=== PATIENT | female | born 1945 | race Caucasian/White ===

== ENCOUNTER 2017-03-06 06:03 | Inpatient (IN) | payer OTHER ==
[2017-02-05 13:06] VITALS: BMI 37.0
--- NOTE | 2017-02-05 13:41 | PAT Medication Instructions ---
Service Date Feb 05, 2017. Current Home Medication List Aspirin (Aspir-81), 81 MG PO QPM Furosemide (Furosemide), 1 TAB PEG QAM Levothyroxine Sodium (Synthroid), 1 TAB PO DAILYBB Loratadine (Claritin), 10 MG PO HS Montelukast Sodium (Singulair), 10 MG PO HS Multivitamin (Multivitamin), 2 TAB PO QAM Ranitidine (Zantac), 150 MG PO BID Medication Instructions For Your Scheduled Surgery - Hold the following medications the morning of surgery: Multivitamin (Multivitamin), 2 TAB PO QAM Furosemide (Furosemide), 1 TAB PEG QAM - Take the following medications the morning of surgery with a sip of water: Ranitidine (Zantac), 150 MG PO BID Levothyroxine Sodium (Synthroid), 1 TAB PO DAILY - Take the following medications as scheduled the night before surgery: Ranitidine (Zantac), 150 MG PO BID Loratadine (Claritin), 10 MG PO HS Montelukast Sodium (Singulair), 10 MG PO HS Aspirin (Aspir-81), 81 MG PO QPM *OTHERWISE NOTHING TO EAT OR DRINK AFTER MIDNIGHT* If you have any questions please call us at [phone] or [phone] or [phone]
[2017-02-05 13:57] LABS: BASO % 1.2 %; BASO ABS # 0.11 K/uL (0-0.2); COMPLETE YES; EOS % 2.5 %; HEMATOCRIT 40.1 % (37-47); IG% 0.2 %; LYMPH % 22.2 %; LYMPH ABS # 1.97 K/uL (1.2-3.4); MEAN CELL VOLUME 88.1 fL (80-100); MEAN CORPUSCULAR HEMOGLOBIN 29.7 pg (25-34); MEAN CORPUSCULAR HGB CONC 33.7 g/dl (32-36); MEAN PLATELET VOLUME 8.4 fL (7.4-10.4); MONO % 7.1 %; NEUT % 66.8 %; PLATELET COUNT 292 K/uL (130-400); RED BLOOD COUNT 4.55 M/uL (4.2-5.4); WHITE BLOOD COUNT 8.88 K/uL (4.8-10.8)
[2017-02-05 14:04] LABS: BUN/CREATININE RATIO 16.5 (10-20); CALCIUM 10.1 mg/dl (8.5-10.1); CREATININE 1.1 mg/dl (0.60-1.20); POTASSIUM 4.4 mmol/L (3.5-5.1)
[2017-02-05 14:08] LABS: PARTIAL THROMBOPLASTIN RATIO 1.1; PROTHROMBIN TIME (PATIENT) 10.3 SECONDS (9.0-12.0)
[2017-02-05 14:44] LABS: URINE APPEARANCE CLEAR (CLEAR); URINE BILIRUBIN NEG (NEG); URINE COLOR YELLOW; URINE NITRITE NEG (NEG); URINE PH 6.5 (4.5-7.5); URINE SPECIFIC GRAVITY 1.013 (1.000-1.030); UROBILINOGEN NEG (NEG)
[2017-02-05 14:50] LABS: MANUAL MICROSCOPIC REQUIRED? NO; REVIEW REQ? NO
--- NOTE | 2017-03-05 19:02 | HISTORY & PHYSICAL EXAMINATION ---
DATE OF ADMISSION: 03/06/2017 HISTORY AND PHYSICAL ADMISSION NOTE CHIEF COMPLAINT: Primary osteoarthritis of the right hip. HISTORY OF PRESENT ILLNESS: Deborah is a pleasant 71-year-old female who has been having a several year history of right hip and groin pain. She has been getting progressively worse over the past year. It is now bothering her when she walks and when she sleeps at night. It limits her daily activities. X-rays and clinical examination were diagnostic for primary osteoarthritis of the right hip. After failing extensive conservative treatment, she elected to proceed with a right total hip arthroplasty. PAST MEDICAL HISTORY: Significant for hypothyroidism, depression, hyperlipidemia, GERD, vertigo and hypertension. PAST SURGICAL HISTORY: Posterior lumbar fusion, cholecystectomy, D&C, appendectomy, carpal tunnel release, and knee arthroscopy. ALLERGIES: None. MEDICATIONS: Include ranitidine 150 mg in the morning and evening, Singulair 10 mg daily, loratadine 10 mg daily, carvedilol 12.5 mg 1-1/2 pills in the morning and 1 pill in the evening, Synthroid 100 mcg daily, Lasix 20 mg daily, aspirin 81 mg daily, vitamin E 400 units daily, magnesium 250 mg 1-1/2 tabs daily, losartan 100 mg daily. FAMILY HISTORY: Noncontributory. SOCIAL HISTORY: She is , denies any history of tobacco use REVIEW OF SYSTEMS: She complains of right hip pain. All other pertinent review of systems is negative. PHYSICAL EXAMINATION: GENERAL: She is awake, alert and orient x3. She is in no apparent distress. She is very pleasant. HEENT: Pupils are equal, round and reactive to light. Extraocular motion intact. Oral mucosa is pink and moist. HEART: Regular rate per radial pulse. LUNGS: Nela symmetrically bilaterally with no audible breath sounds. ABDOMEN: Soft, nontender, nondistended. MUSCULOSKELETAL: On physical examination of her hip, she ambulates independently. She has some mild tenderness to palpation over the greater trochanteric bursa. While lying supine, she has a reproducible groin pain with forced internal and external rotation of her right hip. Her leg lengths were equal. She can plantarflex and dorsiflex the right ankle appropriately. IMAGING: X-rays of the right hip do show advanced osteoarthritis with joint space narrowing, subchondral cysts and osteophyte formation. IMPRESSION: Advanced osteoarthritis of the right hip. PLAN: Will proceed with a Biomet Taperloc right total hip arthroplasty. Postoperatively, she will be started on aspirin 325 mg twice a day for DVT prophylaxis and kept in the hospital for postoperative medical management. TERESA
[2017-03-06] VITALS (9 sets, daily range): BP systolic 133–170; BP diastolic 72–85; PULSE 55–72; TEMP 36.5–36.8; O2SAT 95–100; Ht 152.4 cm; Wt 86.0 kg
[~2017-03-06] VITALS: Ht 152.4 cm; Wt 86.0 kg
[~2017-03-06 06:03] MED LIST: ACETAMINOPHEN 500 MG TAB PO SCH; ASPI-232 PO; CEFAZOLIN 2000 MG/60 ML D5W 60 ML IV SCH; CLR10 PO; FAMOTIDINE 20 MG TAB PO SCH; GABAPENTIN 300 MG CAP PO SCH; LACTATED RINGER'S 1000ML 1,000 ML IV SCH; LACTATED RINGER'S 1000ML 500 ML IV ONE; LACTATED RINGER'S 1000ML IV SCH; LSX20 PO; MONT1TAB3 PO; MULT-506 PO; ROPIVACAINE 5MG/ML 30 ML 150 MG, BUPIVACAINE/EPINEPHR 0.5% MPF 30 ML, KETOROLAC TROMETH... INFIL SCH; SYN100 PO; ZNTT/150 PO
[2017-03-06] MEDS ORDERED: BUPIVACAINE 0.5 % 5 MG/1 ML PF 10ML VIAL ONE (06:18)
[2017-03-06] MEDS: TRANEXAMIC ACID INJ 1,000 MG in SODIUM CHLORIDE 0.9% 100ML 100 ML IV SCH ×2 (06:30→06:42)
[2017-03-06] MEDS ORDERED: CARV12.52 PO (06:34)
[2017-03-06] MEDS ORDERED: HYZ/10015 PO (06:34)
[2017-03-06] MEDS ORDERED: MIDAZOLAM HCL 1 MG/ML 2ML VIAL ONE ×2 (06:39→08:58)
[2017-03-06] MEDS ORDERED: LIDOCAINE HCL 2% 2 ML VIAL (20MG/ML) ONE (06:39)
[2017-03-06] MEDS ORDERED: PROPOFOL IV EMULSION 10 MG/ML 20 ML VIAL IV ONE (06:39)
--- NOTE | 2017-03-06 06:52 | History & Physical Bridge Note ---
H&P Re-Evaluation Bridge Note: I have examined the patient, reviewed the History & Physical and in the interval since the performance of the History & Physical I have noted the following changes of clinical significance: No changes noted
[2017-03-06] MEDS ORDERED: ATROPINE SULFATE 0.1 MG/ML 5ML SYR IV PRN (07:00)
[2017-03-06] MEDS ORDERED: EpHEDrine SULFATE INJ 50 MG/ML AMP IV PRN (07:00)
[2017-03-06] MEDS ORDERED: ONDANSETRON INJ 2 MG/ML 2 ML VIAL IV PRN ×2 (07:00→10:45)
[2017-03-06] MEDS ORDERED: FENTANYL CITRATE INJ 50 MCG/1 ML 2 ML VIAL IV PRN (07:00)
[2017-03-06] MEDS ORDERED: FENTANYL CITRATE INJ 50 MCG/1 ML 2 ML VIAL ONE ×2 (07:04→08:58)
[2017-03-06] MEDS ORDERED: ORTHO JOINT ANESTHETIC ONE (07:54)
[2017-03-06] MEDS ORDERED: BACITRACIN 50000 UNIT VIAL ONE (07:54)
[2017-03-06] MEDS ORDERED: EpHEDrine SULFATE 50MG/5ML SYR ONE (09:21)
[2017-03-06] MEDS ORDERED: EpHEDrine SULFATE INJ 50 MG/ML AMP ONE (10:16)
--- NOTE | 2017-03-06 10:34 | [facility] Post Operative Brief Note ---
Immediate Operative Summary Operative Date Mar 06, 2017. Pre-Operative Diagnosis Advanced Osteoarthritis of the Right Hip Post-Operative Diagnosis Advanced Osteoarthritis of the Right Hip Procedure(s) Performed Right Anterior Total Hip Arthroplasty--Uncemented Surgeon Dr. Mehta Home Appliance Installer Surgeon(s) SHERIF Miller Estimated Blood Loss 350cc Findings as above Specimens A. Right Femoral Head Complication(s) None Disposition Recovery Room / PACU
[2017-03-06] MEDS ORDERED: METOCLOPRAMIDE HCL INJ 5 MG/ML 2 ML VIAL IV PRN (10:45)
[2017-03-06] MEDS ORDERED: BISACODYL 10 MG SUPP PR PRN (10:45)
[2017-03-06] MEDS ORDERED: MAGNESIUM HYDROXIDE SUSP 30 ML UDC PO PRN (10:45)
[2017-03-06] MEDS ORDERED: SOD PHOSPHATE/SOD BIPHOSPHATE ENEMA 132 ML BTL PR PRN (10:45)
[2017-03-06] MEDS ORDERED: SILVER SULFADIAZINE 1% CR 50 GM JAR EXT PRN (10:45)
[2017-03-06] MEDS ORDERED: MoRPHine SULFATE 2 MG/ML CARP IV PRN (10:45)
--- NOTE | 2017-03-06 11:15 | OPERATIVE REPORT ---
DATE OF OPERATION: 03/06/2017 PREOPERATIVE DIAGNOSIS: Primary osteoarthritis of the right hip. POSTOPERATIVE DIAGNOSIS: Same. PROCEDURE: Right total hip arthroplasty. SURGEON: Dr. Liang Mehta. ANIMAL CARETAKER: Rakesh Gomez PA-C, whose assistance was necessary for helping with retraction and closure. ANESTHESIA: Spinal. COMPLICATIONS: None. CONDITION: Stable to PACU. IMPLANTS USED: I used a Biomet Taperloc total hip arthroplasty system with a size 6 high offset stem with a 46-mm cup, a 28-mm E-poly neutral liner, a single 30-mm screw and a 28 head with a -6 neck. It was a very short and varus femur. INDICATIONS: Deborah is a 71-year-old female who presented to my office with complaints of chronic bilateral hip pain, right worse than left. X-rays and clinical examination were diagnostic for primary osteoarthritis of the hip. After failing conservative treatment, she elected to undergo a right total hip arthroplasty. DESCRIPTION OF PROCEDURE: On 03/06/2017, she arrived at [facility] for the above procedure. She was seen in the preoperative holding area and the operative extremity was identified and signed. She was given a preoperative antibiotic and a spinal anesthetic. She was taken back to the operating room, laid on the table in supine position and given basic sedation. The right leg was then brought out to the Purist leg positioner. The right hip was then prepped and draped in sterile fashion. Time-out was done and the patient and operative extremity was properly identified. An anterior approach was used. Dissection was taken down to the tensor and fascia was released. The tensor muscle was retracted laterally and the rectus was retracted medially. The circumflex vessels were ligated. The capsule was exposed. The capsule was then incised for later capsular repair. The femoral neck was then resected and the head was removed. The acetabulum was then exposed. Time was spent doing a complete circumferential labral release. Sequential reaming of the acetabulum up to a size 45 reamer was done. I was able to get good circumferential bleeding bone with this. A size 46-mm acetabulum was then impacted into place under fluoroscopy to ensure appropriate alignment. The wound was then irrigated and a single 30-mm screw was placed followed by a 28-mm E-poly neutral liner. The proximal femur was then exposed. Sequential broaching up to a size 6 broach was done. I had trouble assuming the 6 broach low enough. A high offset neck was used and a -6 head was trialled. The hip was reduced. Overall, the hip looked to be a little bit long. Time was spent ensuring that the broach stem was completely seated. I even tried decreasing it to a size 5 stem; however, that felt very stable. I decided to go with a size 6 stem high offset and impacted it into the canal in place. A 28-mm -6 neck was then used. The hip was then reduced and final fluoroscopic images showed anatomic alignment with slight lengthening of the right hip. The surrounding soft tissues were injected with 100 mL of an orthopedic pain control cocktail. The wound was then irrigated with 3 liters of normal saline solution with bacitracin. The capsule was then closed with #1 Vicryl suture. A drain was placed. Fascia was closed with #1 PDS suture. Skin was closed with 2-0 Vicryl, 3-0 V-Loc suture and melonie. She was then placed in a soft compressive dressing and taken to the postanesthesia care unit in stable condition. She tolerated the procedure well. I attest to the content of the Intraoperative Record and any orders documented therein. Any exception s are noted below.
--- NOTE | 2017-03-06 11:33 | DIAGNOSTIC IMAGING REPORT ---
R PELVIS/UNILATERAL HIP 1 VIEW CLINICAL HISTORY: Postoperative evaluation. COMPARISON: Right hip radiographs January 26, 2017. FINDINGS: Alignment of the total right hip arthroplasty is anatomic. There is no fracture or unexpected radiopaque foreign body. Skin melonie and a drain are in place. IMPRESSION: Expected findings following total right hip arthroplasty. Electronically signed by: Devang Junior M.D. 03/06/2017 11:32 AM Dictated Date/Time: 03/06/2017 11:31 AM
[2017-03-06] MEDS: SODIUM CHLORIDE 0.9% 1000ML 1,000 ML IV SCH ×2 (12:26→21:48)
--- NOTE | 2017-03-06 12:30 | DIAGNOSTIC IMAGING REPORT ---
INTRAOPERATIVE RADIOGRAPHS CLINICAL HISTORY: Right hip arthroplasty. Fluoroscopy time: 52 seconds. FINDINGS: 2 spot fluoroscopic views of the right hip are presented. Correlation with radiographs dated 01/26/2017. A right hip arthroplasty is in near-anatomic alignment. A single cortical lag screw transfixes the acetabular cup. There is no evidence of fracture on these fluoroscopic images. IMPRESSION: Intraoperative images from a right hip arthroplasty procedure as above. Electronically signed by: Moy Montgomery M.D. 03/06/2017 12:28 PM Dictated Date/Time: 03/06/2017 12:27 PM
--- NOTE | 2017-03-06 13:05 | Anesthesiology Progress Note ---
Anesthesia Post Op Note Date & Time Mar 06, 2017 at 13:04 Vital Signs Pain Intensity: 0.0 Vital Signs Past 12 Hours Date Time Temp Pulse Resp B/P (MAP) Pulse Ox O2 Delivery O2 Flow Rate FiO2 03/06/17 12:45 61 17 146/78 (100) 100 Nasal Cannula 2.0 03/06/17 12:15 58 18 160/78 (105) 99 Nasal Cannula 2.0 03/06/17 11:45 100 Nasal Cannula 2.0 03/06/17 11:45 36.6 55 18 133/79 (97) 100 Nasal Cannula 2.0 03/06/17 11:45 Nasal Cannula 03/06/17 11:32 54 16 03/06/17 11:32 54 16 100 03/06/17 11:31 143/68 03/06/17 11:27 56 15 03/06/17 11:27 55 15 99 03/06/17 11:26 135/70 03/06/17 11:24 55 16 03/06/17 11:24 56 16 99 03/06/17 11:21 140/85 03/06/17 11:19 56 16 03/06/17 11:19 56 16 100 03/06/17 11:18 56 15 03/06/17 11:18 56 15 100 03/06/17 11:16 128/90 03/06/17 11:13 61 19 100 03/06/17 11:13 62 19 03/06/17 11:12 133/88 03/06/17 11:08 60 19 03/06/17 11:08 60 19 100 03/06/17 11:07 137/75 03/06/17 11:03 64 21 97 03/06/17 11:03 65 21 03/06/17 11:01 106/82 03/06/17 10:59 126/69 03/06/17 10:58 36.8 68 16 126/69 98 Oxymask 10 03/06/17 10:58 70 19 98 03/06/17 10:58 67 19 03/06/17 06:41 36.5 63 18 170/85 98 Room Air Notes Mental Status: alert / awake / arousable, participated in evaluation Pt Amnestic to Procedure: Yes Nausea / Vomiting: adequately controlled Pain: adequately controlled Airway Patency, RR, SpO2: stable & adequate BP & HR: stable & adequate Hydration State: stable & adequate Neuraxial Anesthesia: was administered, sensory block is resolving Anesthetic Complications: no major complications apparent
[2017-03-06] MEDS: KETOROLAC TROMETHAMINE 15 MG/ML VIAL IV. SCH ×2 (14:00→19:09)
[2017-03-06] MEDS: ACETAMINOPHEN IV 1,000 MG in EMPTY BAG 0 ML IV SCH ×2 (14:00→21:48)
[2017-03-06] MEDS: CEFAZOLIN IV 2,000 MG in DEXTROSE 5% 50ML 50 ML IV SCH ×2 (16:55→23:36)
[2017-03-06] MEDS ORDERED: TRANEXAMIC ACID INJ 1,000 MG in SODIUM CHLORIDE 0.9% 100ML 100 ML IV ONE (17:00)
[2017-03-06] MEDS: MONTELUKAST SOD 10 MG TAB PO SCH (20:17)
[2017-03-06] MEDS: DOCUSATE SODIUM 100 MG CAP PO SCH (20:17)
[2017-03-06] MEDS: LORATADINE 10 MG TAB PO SCH (20:17)
[2017-03-06] MEDS: RANITIDINE HCL 150 MG TAB PO SCH (20:18)
[2017-03-06] MEDS: SENNA 8.6 MG TAB PO SCH (20:18)
[2017-03-06] MEDS: ASPIRIN 325 MG ECTAB PO SCH (20:19)
[2017-03-06] MEDS: CARVEDILOL 6.25 MG TAB PO SCH (20:19)
[2017-03-07] VITALS (7 sets, daily range): BP systolic 104–174; BP diastolic 58–84; PULSE 57–63; TEMP 36.5–37; O2SAT 98–100
[2017-03-07] MEDS: KETOROLAC TROMETHAMINE 15 MG/ML VIAL IV. SCH ×4 (01:40→19:47)
[2017-03-07] MEDS: ACETAMINOPHEN IV 1,000 MG in EMPTY BAG 0 ML IV SCH (05:33)
[2017-03-07] MEDS: LEVOTHYROXINE 100 MCG TAB PO SCH (05:33)
[2017-03-07 06:19] LABS: BASO % 0.1 %; BASO ABS # 0.01 K/uL (0-0.2); COMPLETE YES; HEMATOCRIT 29.3 % (37-47); IG% 0.3 %; LYMPH % 4.8 %; LYMPH ABS # 0.71 K/uL (1.2-3.4); MEAN CELL VOLUME 88.8 fL (80-100); MEAN CORPUSCULAR HEMOGLOBIN 28.5 pg (25-34); MEAN CORPUSCULAR HGB CONC 32.1 g/dl (32-36); MEAN PLATELET VOLUME 8.2 fL (7.4-10.4); MONO % 7.5 %; NEUT % 87.3 %; PLATELET COUNT 216 K/uL (130-400); WHITE BLOOD COUNT 14.89 K/uL (4.8-10.8)
[2017-03-07 06:48] LABS: BUN/CREATININE RATIO 22.8 (10-20); POTASSIUM 4.4 mmol/L (3.5-5.1)
[2017-03-07] MEDS: SODIUM CHLORIDE 0.9% 1000ML 1,000 ML IV SCH (07:58)
[2017-03-07] MEDS: DOCUSATE SODIUM 100 MG CAP PO SCH ×2 (08:49→20:40)
[2017-03-07] MEDS: LOSARTAN/HCTZ 50-12.5 EA TAB PO SCH (08:49)
[2017-03-07] MEDS: ASPIRIN 325 MG ECTAB PO SCH ×2 (08:49→20:41)
[2017-03-07] MEDS: MULTIVITAMIN TAB PO SCH (08:50)
[2017-03-07] MEDS: CARVEDILOL 6.25 MG TAB PO SCH ×2 (08:50→20:42)
[2017-03-07] MEDS: FUROSEMIDE 20 MG TAB PO SCH (08:50)
[2017-03-07] MEDS: PANTOprazole SOD 40 MG TAB PO SCH (08:50)
[2017-03-07] MEDS: RANITIDINE HCL 150 MG TAB PO SCH ×2 (08:50→20:43)
--- NOTE | 2017-03-07 09:01 | PROGRESS NOTE ---
DATE: 03/07/2017 CHIEF COMPLAINT: Status post right total hip arthroplasty, postop day #1. PROGRESS: Deborah was seen and examined at bedside today. Overall, she is doing very well. She was up and walking around this morning to the bathroom. She says she has a little bit of decreased sensation in her thigh, but she does have feeling. She has no pain and no other complaints. PHYSICAL EXAMINATION: RIGHT HIP: The dressing is clean and dry and the drain is to suction. She has full active extension of her quad, full dorsiflexion and plantarflexion of her ankle. She can feel me touching her quad, but she says this sensation is a little bit different. LABORATORY DATA: She has an H&H today of 9.4 and 29.3. Her glucose is 111. Her vital signs are all stable on room air. She is voiding on her own. IMPRESSION: Status post right total hip arthroplasty, postop day #1. PLAN: At this point, she is doing fairly well. She will be up and ambulating more today with physical therapy. We will keep her pain controlled. Tomorrow, the nursing staff can change her dressing and pull the drain. I will look at discharging her to home with the [facility].
[2017-03-07] MEDS: ACETAMINOPHEN 500 MG TAB PO SCH ×2 (14:21→20:45)
[2017-03-07] MEDS: OXYCODONE HCL IR 5 MG TAB (IMMEDIATE RELEASE) PO PRN (14:25)
[2017-03-07] MEDS: LORATADINE 10 MG TAB PO SCH (20:42)
[2017-03-07] MEDS: SENNA 8.6 MG TAB PO SCH (20:43)
[2017-03-07] MEDS: MONTELUKAST SOD 10 MG TAB PO SCH (20:44)
[2017-03-08] MEDS: KETOROLAC TROMETHAMINE 15 MG/ML VIAL IV. SCH ×2 (02:16→08:26)
[2017-03-08] MEDS: ACETAMINOPHEN 500 MG TAB PO SCH ×2 (06:05→13:46)
[2017-03-08] MEDS: LEVOTHYROXINE 100 MCG TAB PO SCH (06:05)
[2017-03-08 07:10] VITALS: BP 123/76; PULSE 56; TEMP 36.6; O2SAT 99
[2017-03-08] MEDS: ASPIRIN 325 MG ECTAB PO SCH (08:25)
[2017-03-08] MEDS: LOSARTAN/HCTZ 50-12.5 EA TAB PO SCH (08:26)
[2017-03-08] MEDS: MULTIVITAMIN TAB PO SCH (08:26)
[2017-03-08] MEDS: FUROSEMIDE 20 MG TAB PO SCH (08:26)
[2017-03-08] MEDS: DOCUSATE SODIUM 100 MG CAP PO SCH (08:27)
[2017-03-08] MEDS: RANITIDINE HCL 150 MG TAB PO SCH (08:27)
[2017-03-08] MEDS: CARVEDILOL 6.25 MG TAB PO SCH (08:27)
[2017-03-08] MEDS: PANTOprazole SOD 40 MG TAB PO SCH (08:27)
[2017-03-08 08:32] VITALS: BP 145/77
[2017-03-08] MEDS ORDERED: ASPEC325 PO (09:01)
[2017-03-08] MEDS ORDERED: RXC5 PO (09:01)
--- NOTE | 2017-03-08 09:03 | Discharge Instructions ---
Discharge Instructions Date of Service Mar 08, 2017. Admission Reason for Admission: Right Hip Degenerative Joint Disease Discharge Discharge Diagnosis / Problem: Right Total Hip Discharge Goals Goal(s): Decrease discomfort, Improve function Activity Recommendations Activity Limitations: as noted below . Instructions / Follow-Up Instructions / Follow-Up Activity and Therapy Recommendations: * If you are using [facility] then Physical Therapy will be provided until they feel you are ready to start Outpatient Physical Therapy. If you are not using a Home Health agency then Outpatient Physical Therapy should start about 3-5 days from your day of surgery. Therapy will last about 3-6 weeks * You were shown a series of exercises in the hospital. Do these exercises three times each day including the exercises you were shown in physical therapy. * Get up and walk several times each day.~ For the first four weeks, try not to stand or walk for more than one hour at a time. If you do stand or walk for more than one hour, you will not hurt anything, but your leg will likely swell.~ ~ * As you feel comfortable, you may change from the walker or crutches to a cane and~then to independent walking. Medications: * Narcotic You will likely be sent home from the hospital with a prescription for the narcotic pain medication that worked best throughout your stay. * Aspirin Most patients will be required to take Aspirin 325mg twice a day for 6 weeks after surgery. This is obtained [id number] and a prescription is not necessary. * Other medications may be prescribed for specific circumstances. If you have any questions, please call the office at . * Resume previous home medications unless otherwise instructed TEDs/Elastic Stockings: The white elastic stockings help limit swelling and prevent blood clots from forming in your legs. The more you wear them, the more they work. Wear them for six weeks. Showering: You may shower 5 days from the day of surgery. Let the soapy shower water run over the melonie. Do not scrub or soak the the incision. Things To Watch For: * Drainage from the incision site that occurs more than one week after your surgery. * Increased redness at the incision site. * Fever above 102 degrees Fahrenheit. * Unusual chest pain or shortness of breath. * Call [facility] at with any of the above problems Follow-Up Visit: Follow-up with Dr. Mehta 2-3 weeks after your day of surgery. An appointment was probably scheduled when you signed-up for surgery in the office. If you have any questions call Office Instructions: More detailed instructions as well as Frequently Asked Questions were provided in a folder by our office when you signed-up for surgery. Please review these instructions when you get home. If you have any further questions or concerns, please feel free to call the office at [phone] Current Hospital Diet Patient's current hospital diet: Regular Diet Discharge Diet Recommended Diet: Regular Diet Procedures Procedures Performed: Right Anterior Total Hip Arthroplasty--Uncemented Pending Studies Studies pending at discharge: no Medical Emergencies . Who to Call and When: Medical Emergencies: If at any time you feel your situation is an emergency, please call 911 immediately. . Non-Emergent Contact Non-Emergency issues call your: Surgeon Call Non-Emergent contact if: wound has increased drainage, wound has increased redness . "Provider Documentation" section prepared by Liang Mehta. . VTE Core Measure Inpt VTE Proph given/why not?: Other Anticoagulation (Aspirin 325 twice a day for 6 weeks)
--- NOTE | 2017-03-08 09:29 | PROGRESS NOTE ---
DATE: 03/08/2017 CHIEF COMPLAINT: Status post right total hip arthroplasty, postop day #2. PROGRESS: Deborah was seen and examined at bedside today. Overall, she is doing very well. She was up ambulating well yesterday with physical therapy. Her pain is well controlled. She has no complaints. PHYSICAL EXAMINATION: RIGHT LEG: The dressing has been changed and the drain has been pulled. Her leg lengths were equal. She has good strength with knee extension, full dorsiflexion and plantarflexion of her right ankle. She has slight decreased sensation over the femoral cutaneous nerve, but she says that is improving. IMPRESSION: Status post right total hip arthroplasty, postop day #2. PLAN: At this point, she is doing very well and happy with her progress. She has very little pain. She is working well with physical therapy and she is stable for discharge to home later this morning.
[2017-03-08 09:50] VITALS: BP 145/77; PULSE 56; TEMP 36.6; O2SAT 99
--- NOTE | 2017-03-08 09:50 | DISCHARGE SUMMARY ---
DISCHARGE DIAGNOSIS: Primary osteoarthritis of the right hip. PROCEDURE: Right total hip arthroplasty on 03/06/[address] Liang Mehta. DISCHARGE INSTRUCTIONS: 1. Aspirin 325 mg twice a day for DVT prophylaxis. 2. Oxycodone 5-10 mg every 4 hours as needed for pain. 3. Coreg 12.5 mg 1-1/2 tabs twice a day. 4. Lasix 20 mg daily. 5. Hyzaar 25/100 mg daily. 6. Synthroid 100 mcg daily. 7. Claritin 10 mg daily. 8. Singulair 10 mg at night. 9. Daily multivitamin. 10. Zantac 150 mg twice a day. 11. Follow up with Dr. Mehta in 2 weeks. 12. Call the office of Dr. Mehta with any questions or concerns. HOSPITAL COURSE: Deborah is a pleasant 71-year-old female, who presented to my office with chronic right hip and groin pain. X-rays and clinical examination were diagnostic for primary osteoarthritis of the right hip. After failing conservative treatment, she elected to undergo a right total hip arthroplasty. On 03/06/2017, she arrived at [facility] and underwent a right anterior hip replacement without complication. She had a spinal anesthetic. Postoperatively, she was discharged to general orthopedic floor and has been started on aspirin 325 mg twice a day. Hospital course was uneventful. On postop day #1, her H&H was stable at 9.4 and 29.3. She was able to get up and ambulate well with physical therapy. She had very little pain. On postop day #2, she continued to do very well. She had a little soreness in the hip, but it was not bad. She continued to ambulate well with physical therapy. The dressing was changed, the drain was pulled and she was subsequently discharged to home with the above instructions.
[2017-03-08] MEDS: OXYCODONE HCL IR 5 MG TAB (IMMEDIATE RELEASE) PO PRN (10:27)
== END 2017-03-08 14:15 | disposition home health service (06) | DRG 470 ==
LOC: C.ACU 06:03 → C.3E 06:30 → ENRESERV 11:14
PROVIDERS: ADMIT Orthopaedic Surgery; ATTEND Orthopaedic Surgery
PROC: 0SR90JA Replacement of Right Hip Joint with Synthetic Substitute, Uncemented, Open Approach (ICD-10-PCS; principal; 2017-03-06 08:00)
DX: M16.11 Unilateral primary osteoarthritis, right hip (principal); M21.151 Varus deformity, not elsewhere classified, right hip; J45.909 Unspecified asthma, uncomplicated; G47.33 Obstructive sleep apnea (adult) (pediatric); I10 Essential (primary) hypertension; E03.9 Hypothyroidism, unspecified; R00.1 Bradycardia, unspecified; K21.9 Gastro-esophageal reflux disease without esophagitis; E66.9 Obesity, unspecified; Z68.37 Body mass index [BMI] 37.0-37.9, adult; Z98.1 Arthrodesis status; Z87.891 Personal history of nicotine dependence; Z79.82 Long term (current) use of aspirin; Z79.899 Other long term (current) drug therapy